=== PATIENT | male | born 1975 | race Caucasian/White ===

== ENCOUNTER 2023-07-24 11:19 | Emergency (ER) | payer MEDICARE, MEDICAID, SELFPAY ==
[2023-07-24 11:20] VITALS: BP 137/96; PULSE 82; RESP 14; TEMP 35.5; O2SAT 99; BMI 26.8
--- NOTE | 2023-07-24 11:35 | RAD_ITS ---
STUDY: X-RAY - RIGHT HAND REASON FOR EXAM: Male, 48 years old. Pain following injury. TECHNIQUE: 3 view(s) of the hand. COMPARISON: None. FINDINGS: Normal radiocarpal articulation. Normal distal radioulnar joint. Normal visualized carpal bones. Normal carpal articulations Normal carpometacarpal articulation of the thumb. Normal second through fifth carpometacarpal joints. Normal metacarpi. Normal metacarpophalangeal joint of the thumb. Normal interphalangeal joint of the thumb. Normal proximal and distal phalanges of the thumb. Normal metacarpophalangeal joints of the second through fifth fingers. Normal proximal and distal interphalangeal joints of the second through fifth fingers. Normal phalanges of the second through fifth fingers. The soft tissue structures are unremarkable. RAD/Hand Min 3 Views IMPRESSION: Normal x-ray examination of the hand. Electronically Signed: Felix Stacy MD at 12:07 EDT ,
--- NOTE | 2023-07-24 11:35 | RAD_ITS ---
STUDY: X-RAY - UNILATERAL RIBS ( LEFT ) WITH CHEST REASON FOR EXAM: Male, 48 years old. Pain TECHNIQUE - RIBS: 4 view(s) of the ribs. TECHNIQUE - CHEST: Single PA view of the chest. COMPARISON: None. FINDINGS - RIBS: Normal visualized ribs without a demonstrated fracture. FINDINGS - CHEST: The lungs are clear and expanded. There is no demonstrated pleural abnormality. Normal size heart. Normal mediastinum and nelson. Normal visualized pulmonary arteries. Normal visualized aortic arch and descending thoracic aorta. Normal visualized thoracic spine. Normal visualized ribs, clavicles, and shoulders. There is no demonstrated abnormality of the visualized soft tissue structures of the upper abdomen. RAD/Ribs Uni Min 3V w/PA Chest IMPRESSION: RIBS: Normal x-ray examination of the ribs. CHEST: Normal x-ray examination of the chest. Electronically Signed: Felix Stacy MD at 12:08 EDT ,
--- NOTE | 2023-07-24 11:37 | EDS_ITS ---
<Statement entered by Deandra Ibrahim MD - 07/24/23 13:51> I have personally performed a face to face assessment of the patient and have reviewed the KIKA Note. Patient presents secondary to rib and right hand pain. He reportedly had a seizure a week ago while sitting in his father's truck. He complains of pain to the right sternal border, left ribs, and base of the right thumb. He states he has not been taking anything for pain. Patient sitting upright in bed no acute distress. Head and neck examination was no sign of trauma. Heart is regular rate and rhythm. Lung sounds are clear. Chest wall reveals mild reproducible tenderness. No crepitus. No abrasions or ecchymosis noted. Extremity examination feels mild tenderness at the base of the right thumb. Good range of motion with normal Cap refill and sensation. Rib series and right hand x-rays are obtained to evaluate for potential fracture. Rib series on my interpretation reveals no evidence of pneumothorax or obvious displaced rib fracture. Radiology interpretation reviewed and agrees. Right hand x-ray per my interpretation reveals no evidence of fracture or dislocation. Radiology interpretation reviewed and agrees. Patient given Tylenol for pain. Manpreet wrap applied to the right hand and wrist. Patient has been worked up for seizures previously and does not want any further workup for that. He will follow-up as an outpatient. HPI History of Present Illness Chief Complaint: Chest Other Narrative Narrative: 48-year-old male states he had a seizure on 07/15. He was sitting in his dad's truck and states he injured his right hand and his chest wall on the console. He is here due to persistent pain in these areas. 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 He is from [place] and states he saw a doctor and had a lot of testing and an EEG that was normal. He is not on any medication for seizures. He does not really want evaluated for seizures, only the persistent injuries. He is here visiting his girlfriend and decided to seek evaluation. [facility] Medical History (Updated 07/24/23 @ 12:10 by APARNA Fang) Epilepsy Allergy/AdvReac Type Severity Reaction Status Date / Time No Known Allergies Allergy Verified 07/24/23 11:21 Social History Smoking Status: Current some day smoker tobacco type: cigarettes ROS ROS ED ROS Narrative Constitutional: Negative for fever, chills, malaise. CVS: Negative for chest pain. Respiratory: Negative for shortness of breath, cough. Neuro: Negative for headache. Musc: Positive for right hand pain, trauma. EXAM Physical Exam Narrative Exam Narrative: CONST: Patient sitting in no acute distress. EYES: Normal inspection. NECK: Normal inspection. RESP: No respiratory distress, CTAB. Tender over lower sternum and xiphoid process without deformity or crepitus. CVS: Regular rate and rhythm, no murmur, no gallop. ABD: Soft and nontender, no guarding or rebound, nondistended. Back: Normal inspection, no midline tenderness. SKIN: Color normal, no rash, warm, dry, intact. EXTREMITIES: Normal appearance of upper and lower extremities, full range of motion, only area of tenderness is right hand proximal second medical carpal just next to the scaphoid but not over this area. No tenderness of forearm or distal radius and ulna. Normal motor and sensory function in median radial and ulnar distribution, 2+ radial pulse and brisk cap refill. NEURO: Alert and answering questions appropriately. PSYCH: Normal affect. Const Vital Signs: 07/24/23 11:20 Temperature 95.9 F L Temperature Source Temporal Pulse Rate 82 Respiratory Rate 14 Blood Pressure 137/96 H Blood Pressure Mean 109 Pulse Ox 99 Oxygen Delivery Method Room Air MDM MDM MDM Narrative Medical decision making narrative: Patient injured his right hand and chest wall about 1 week ago. He has no external signs of injury. He is tender over the right second metacarpal area. No scaphoid tenderness. He is neurovascularly intact. He also has tenderness over the lower sternum and left ribs with no deformity or crepitus and normal heart lung sounds. X-ray showed no acute traumatic findings. He was treated with Tylenol was provided with an Manpreet wrap for his hand. I discussed symptomatic management and he was discharged in stable condition. Radiography Diagnostic Testing: Clinical Impression(s) from Imaging Studies Hand X-Ray 07/24/23 11:35 IMPRESSION: Normal x-ray examination of the hand. Electronically Signed: Felix Stacy MD at 12:07 EDT , Ribs w/Chest X-Ray 07/24/23 11:35 IMPRESSION: RIBS: Normal x-ray examination of the ribs. CHEST: Normal x-ray examination of the chest. Electronically Signed: Felix Stacy MD at 12:08 EDT , ED attending interpretation of right hand shows no fracture or dislocation. ED attending interpretation of chest and rib series so no evidence of displaced rib fracture or pneumothorax. Discharge Plan Triage Chief Complaint: Chest Other ED Midlevel Provider: Alyssa Swanson ED Provider: Deandra Ibrahim Dx/Rx/DC Orders Clinical Impression: Chest wall contusion, Contusion of hand, right Instructions: Bruises (Contusions) Primary Care Provider: Care Physician,No Primary Activity Restrictions/Additional Instructions: Ice and take Tylenol or Motrin as needed. I strongly recommend you follow-up with a primary care doctor. Disposition Disposition: Home, Self Care
[2023-07-24] MEDS: Acetaminophen 500 MG Tablet 1000 MG PO (12:28)
== END 2023-07-24 12:40 | disposition home or self-care (01) ==
LOC: ED 12:19
PROVIDERS: Emergency Provider Emergency Medicine; Visit Provider Emergency Medicine
DX: S60.221A Contusion of right hand, initial encounter (principal); S20.20XA Contusion of thorax, unspecified, initial encounter; F17.210 Nicotine dependence, cigarettes, uncomplicated; M79.641 Pain in right hand; W22.09XA Striking against other stationary object, initial encounter
CPT/HCPCS: 71101; 73130; 99283